=== PATIENT | female | born 1980 | race Caucasian/White ===

== ENCOUNTER 2021-06-17 13:16 | Day surgery (SDC) | payer OTHER ==
[~2021-06-17] VITALS: Ht 167.6 cm; Wt 61.6 kg
[2021-06-17 13:50] VITALS: BP 130/83
[2021-06-17] MEDS ORDERED: SODIUM CHLORIDE 0.9% 1,000 ML IV ONE (15:00)
[2021-06-17] MEDS ORDERED: FENTANYL PF 100 MCG/2ML ONE ×2 (15:35→16:28)
[2021-06-17] MEDS ORDERED: NALOXONE 1 MG/ML, 2ML ONE (15:35)
[2021-06-17] MEDS ORDERED: MIDAZOLAM 1 MG/ML, 5ML ONE ×2 (15:35→16:28)
[2021-06-17] MEDS ORDERED: FLUMAZENIL 0.1 MG/1 ML, 5ML ONE (15:35)
== END 2021-06-17 17:32 | disposition home or self-care (01) ==
LOC: RAD 13:16 → EDSTATUS 14:45 → OUT 17:32
PROVIDERS: ATTEND Nurse Practitioner Family
DX: R42 Dizziness and giddiness (principal); Z79.899 Other long term (current) drug therapy
CPT/HCPCS: 70551; 99156; 99157; J2250; J3010; J2310